=== PATIENT | female | born 1965 | race Caucasian/White ===

== ENCOUNTER → 2016-08-02 | Day surgery (SDC) | payer BC ==
--- NOTE | 2016-08-04 14:29 | MM ---
EXAMINATION TYPE: MG discontinued stereo core LT DATE OF EXAM: 08/02/2016 12:50 PM COMPARISON: Prior mammogram 18 July 2016 CLINICAL HISTORY: Abnormal mammogram Attempts to localize the patient's breast nodule were unsuccessful. The exam is aborted. Precautionary follow-up diagnostic mammogram is recommended in 3-6 months
== END ==
LOC: RADMAMWWP 09:47
PROVIDERS: ATTEND Surgery
DX: R92.8 Other abnormal and inconclusive findings on diagnostic imaging of breast (principal); Z53.8 Procedure and treatment not carried out for other reasons

== ENCOUNTER → 2017-01-23 | Outpatient (CLI) | payer BC ==
--- NOTE | 2017-01-23 13:44 | MM ---
Reason for exam: follow-up at short interval from prior study. Last mammogram was performed 6 months ago. History: Patient is postmenopausal and has history of other cancer at age 33. Family history of breast cancer in maternal aunt. MG discontinued stereo core LT of the left breast, August 02, 2016. Physical Findings: Nurse did not find any significant physical abnormalities on exam. MG Diagnostic Mammo LT w CAD CC and MLO view(s) were taken of the left breast. Prior study comparison: July 18, 2016, bilateral MG diagnostic mammo w CAD TIA. January 15, 2015, bilateral MG screening mammo w CAD. There are scattered fibroglandular densities. Nodular density in the left breast is improved. These results were verbally communicated with the patient and result sheet given to the patient on 01/23/17. ASSESSMENT: Probably benign, BI-RAD 3 RECOMMENDATION: Follow-up diagnostic mammogram of both breasts in 6 months. Back on schedule.
== END | disposition home or self-care (01) ==
LOC: RADMAMWWP 12:50
PROVIDERS: ATTEND Family Medicine
DX: R92.8 Other abnormal and inconclusive findings on diagnostic imaging of breast (principal)

== ENCOUNTER → 2017-09-22 | Outpatient (CLI) | payer BC ==
--- NOTE | 2017-09-22 14:35 | MM ---
Reason for exam: additional evaluation requested from prior study. Last mammogram was performed 8 months ago. History: Patient is postmenopausal and has history of other cancer at age 33. Family history of breast cancer in maternal aunt. MG discontinued stereo core LT of the left breast, August 02, 2016. Physical Findings: Nurse did not find any significant physical abnormalities on exam. MG Diagnostic Mammo w CAD TIA Bilateral CC and MLO view(s) were taken. XCCL view(s) were taken of the right breast. Spot compression CC view(s) were taken of the left breast. Prior study comparison: January 23, 2017, left breast MG diagnostic mammo LT w CAD. July 18, 2016, bilateral MG diagnostic mammo w CAD TIA. The breast tissue is almost entirely fat. The focal asymmetry of the central outer left breast is similar to exams dating back to 2013. These results were verbally communicated with the patient and result sheet given to the patient on 09/22/17. ASSESSMENT: Benign, BI-RAD 2 RECOMMENDATION: Routine screening mammogram of both breasts in 1 year.
== END | disposition home or self-care (01) ==
LOC: RADMAMWWP 13:27
PROVIDERS: ATTEND Family Medicine
DX: R92.8 Other abnormal and inconclusive findings on diagnostic imaging of breast (principal)
CPT/HCPCS: 77066

== ENCOUNTER → 2018-12-05 | Outpatient (CLI) | payer BC ==
--- NOTE | 2018-12-06 11:39 | MM ---
Reason for exam: screening (asymptomatic). Last mammogram was performed 1 year and 2 months ago. History: Patient is postmenopausal and has history of other cancer at age 33. Family history of breast cancer in maternal aunt. MG discontinued stereo core LT of the left breast, August 02, 2016. Took hormonal contraceptives for 5 years. Physical Findings: A clinical breast exam by your physician is recommended on an annual basis and results should be correlated with mammographic findings. MG Screening Mammo w CAD Bilateral CC and MLO view(s) were taken. Prior study comparison: September 22, 2017, bilateral MG diagnostic mammo w CAD TIA. January 23, 2017, left breast MG diagnostic mammo LT w CAD. There are scattered fibroglandular densities. There are benign appearing round calcifications bilaterally. There is no discrete abnormality. ASSESSMENT: Benign, BI-RAD 2 RECOMMENDATION: Routine screening mammogram of both breasts in 1 year.
== END | disposition home or self-care (01) ==
LOC: RADMAMWWP 14:29
PROVIDERS: ATTEND Family Medicine
DX: Z12.31 Encounter for screening mammogram for malignant neoplasm of breast (principal)
CPT/HCPCS: 77067

== ENCOUNTER → 2020-08-10 | Outpatient (CLI) | payer BC ==
--- NOTE | 2020-08-12 09:47 | MM ---
Reason for exam: screening (asymptomatic). Last mammogram was performed 1 year and 8 months ago. History: Patient is postmenopausal and has history of other cancer at age 33. Family history of breast cancer in maternal aunt. MG discontinued stereo core LT of the left breast, August 02, 2016. Took hormonal contraceptives for 5 years. Physical Findings: A clinical breast exam by your physician is recommended on an annual basis and results should be correlated with mammographic findings. MG Screening Mammo w CAD Bilateral CC and MLO view(s) were taken. Prior study comparison: December 05, 2018, bilateral MG screening mammo w CAD. September 22, 2017, bilateral MG diagnostic mammo w CAD TIA. There are scattered fibroglandular densities. No significant changes when compared with prior studies. ASSESSMENT: Negative, BI-RAD 1 RECOMMENDATION: Routine screening mammogram of both breasts in 1 year.
== END | disposition home or self-care (01) ==
LOC: RADMAMWWP 14:43
PROVIDERS: ATTEND Family Medicine
DX: Z12.31 Encounter for screening mammogram for malignant neoplasm of breast (principal)
CPT/HCPCS: 77067

== ENCOUNTER → 2021-11-30 | Outpatient (CLI) | payer BC ==
--- NOTE | 2021-12-03 09:45 | MM ---
Reason for exam: screening (asymptomatic). Last mammogram was performed 1 year and 4 months ago. History: Patient is postmenopausal and has history of other cancer at age 33. Family history of breast cancer in maternal aunt. MG discontinued stereo core LT of the left breast, August 02, 2016. Took hormonal contraceptives for 5 years. Physical Findings: A clinical breast exam by your physician is recommended on an annual basis and results should be correlated with mammographic findings. MG Screening Mammo w CAD Bilateral CC and MLO view(s) were taken. Prior study comparison: August 10, 2020, bilateral MG screening mammo w CAD. December 05, 2018, bilateral MG screening mammo w CAD. There are scattered fibroglandular densities. Focal asymmetry in the left breast. No significant changes when compared with prior studies. ASSESSMENT: Benign, BI-RAD 2 RECOMMENDATION: Routine screening mammogram of both breasts in 1 year.
== END | disposition home or self-care (01) ==
LOC: RADMAMWWP 15:26
PROVIDERS: ATTEND Family Medicine
DX: Z12.31 Encounter for screening mammogram for malignant neoplasm of breast (principal)
CPT/HCPCS: 77067

== ENCOUNTER → 2023-01-19 | Outpatient (CLI) | payer BC ==
--- NOTE | 2023-01-20 20:25 | MM ---
Reason for Exam: Screening (asymptomatic). Last mammogram was performed 1 year(s) and 1 month(s) ago. Patient History: Menarche at age 10. First Full-Term at age 24. Hysterectomy at age 33. Postmenopausal. Other cancer, age 33. Patient used Hormonal Contraceptives for 5 years. 08/02/2016, MG discontinued stereo core LT on the left side. Maternal aunt had breast cancer. Risk Values: Samia 5 year model risk: 1.6%. NCI Lifetime model risk: 9.3%. Prior Study Comparison: 12/05/2018 Bilateral Screening Mammogram, [facility]. 08/10/2020 Bilateral Screening Mammogram, [facility]. 11/30/2021 Bilateral Screening Mammogram, [facility]. Tissue Density: There are scattered fibroglandular densities. Findings: Analyzed By CAD. Chronic low density nodularity central left cc view. There is no suspicious group of microcalcifications or new suspicious mass in either breast. Overall Assessment: Benign, BI-RAD 2 Management: Screening Mammogram of both breasts in 1 year. . Patient should continue monthly self-breast exams. A clinical breast exam by your physician is recommended on an annual basis. This exam should not preclude additional follow-up of suspicious palpable abnormalities. Note on Samia scores and lifetime risk: 1. A Samia score greater than 3% is considered moderate risk. If this is the case, consider specialist referral to assess eligibility for a risk reducing agent. 2. If overall lifetime risk for the development of breast cancer is 20% or higher, the patient may qualify for future screening with alternating mammogram and breast MRI. Electronically signed and approved by: Prabhu Santos M.D. Radiologist
== END | disposition home or self-care (01) ==
LOC: RADMAMWWP 15:53
PROVIDERS: ATTEND Family Medicine
DX: Z12.31 Encounter for screening mammogram for malignant neoplasm of breast (principal); Z78.0 Asymptomatic menopausal state; Z80.3 Family history of malignant neoplasm of breast
CPT/HCPCS: 77063; 77067

== ENCOUNTER → 2024-05-09 | Outpatient (CLI) | payer BC ==
--- NOTE | 2024-05-13 09:17 | MM ---
Reason for Exam: Screening (asymptomatic). Last mammogram was performed 1 year(s) and 4 month(s) ago. Patient History: Menarche at age 10. First Full-Term at age 24. Hysterectomy at age 33. Postmenopausal. Other cancer, age 33. Patient used Hormonal Contraceptives for 5 years. 08/02/2016, MG discontinued stereo core LT on the left side. Maternal aunt had breast cancer. Risk Values: Samia 5 year model risk: 1.7%. NCI Lifetime model risk: 9.1%. Prior Study Comparison: 08/10/2020 Bilateral Screening Mammogram, [facility]. 11/30/2021 Bilateral Screening Mammogram, [facility]. 01/19/2023 Bilateral MG 3D screening mammo w/cad, [facility]. Tissue Density: The breasts are almost entirely fatty. Findings: Analyzed By CAD. Right breast: There is no suspicious group of microcalcifications or new suspicious mass. Left breast: There is no suspicious group of microcalcifications or new suspicious mass. Overall Assessment: Negative, BI-RAD 1 Management: Screening Mammogram of both breasts in [address] [facility] will attempt to contact patient to return for supplemental views and ultrasound if indicated. Patient should continue monthly self-breast exams. A clinical breast exam by your physician is recommended on an annual basis. This exam should not preclude additional follow-up of suspicious palpable abnormalities. Note on Samia scores and lifetime risk: 1. A Samia score greater than 3% is considered moderate risk. If this is the case, consider specialist referral to assess eligibility for a risk reducing agent. 2. If overall lifetime risk for the development of breast cancer is 20% or higher, the patient may qualify for future screening with alternating mammogram and breast MRI. [facility], , 05/13/2024 9:14 AM. Electronically signed and approved by: Dipak Fuentes DO
== END | disposition home or self-care (01) ==
LOC: RADMAMWWP 13:53
PROVIDERS: ATTEND Family Medicine
CPT/HCPCS: 77063; 77067